=== PATIENT | male | born 1985 ===

== ENCOUNTER → 2018-01-05 | Day surgery (SDC) | payer BC, OTHER ==
[2017-12-18 09:32] VITALS: Ht 185.4 cm; Wt 113.6 kg
[~2018-01-05] VITALS: Ht 185.4 cm; Wt 113.6 kg
[~2018-01-05] MED LIST: ATROPINE SULFATE 0.1 MG/ML 5ML SYR IV PRN; BUPIVACAINE/EPINEPHRINE 0.5% MPF 1:200,000 30 ML VIAL ONE; CEFAZOLIN 2000MG IV PUSH 15 ML IV SCH; CLIN1CAP51 PO; DEXAMETHASONE SOD INJ 4 MG/ML VIAL ONE; EpHEDrine SULFATE INJ 50 MG/ML AMP IV PRN; FENTANYL CITRATE INJ 50 MCG/1 ML 2 ML VIAL IV PRN; FENTANYL CITRATE INJ 50 MCG/1 ML 2 ML VIAL ONE; LACTATED RINGER'S 1000ML 1,000 ML IV SCH; LIDOCAINE HCL 2% 2 ML VIAL (20MG/ML) ONE; MIDAZOLAM HCL 1 MG/ML 2ML VIAL ONE; ONDANSETRON INJ 2 MG/ML 2 ML VIAL IV PRN; ONDANSETRON INJ 2 MG/ML 2 ML VIAL ONE; OXYC7.5T65 PO; OXYCODONE/ACETAMINOPHEN 5-325 TAB PO PRN; PROPOFOL IV EMULSION 10 MG/ML 20 ML VIAL ONE; SCOPOLAMINE 1.5 MG TDSY TD ONE
--- NOTE | 2018-01-05 11:55 | History & Physical Bridge Note ---
H&P Re-Evaluation Bridge Note: I have examined the patient, reviewed the History & Physical and in the interval since the performance of the History & Physical I have noted the following changes of clinical significance: No changes noted
--- NOTE | 2018-01-05 12:18 | Discharge Instructions ---
Discharge Instructions Date of Service Jan 05, 2018. Admission Reason for Admission: Sterilization, Scrotal Mass Discharge Discharge Diagnosis / Problem: Bilateral hydrocele, left spermatocele, bilateral elective sterilization Discharge Goals Goal(s): Decrease discomfort, Improve function, Increase independence Activity Recommendations Activity Limitations: resume your previous activity Lifting Limitations: gradually increase as tolerated Exercise/Sports Limitations: gradually increase as tolerated . Instructions / Follow-Up Instructions / Follow-Up Okay to shower in 24 hours. Call if any fevers or chills. Monitor skin and area for swelling. Avoid overactivity, heavy lifting, or contact sports. Okay to ice every 20 mins intermittently. Call if any issues. Finish antibiotics. Current Hospital Diet Patient's current hospital diet: Discharge Diet Recommended Diet: Regular Diet Procedures Procedures Performed: Bilateraly scrotal exploration and removal of cystic lesions and bilateral vasectomy. Pending Studies Studies pending at discharge: no Medical Emergencies . Who to Call and When: Medical Emergencies: If at any time you feel your situation is an emergency, please call 911 immediately. . Non-Emergent Contact Non-Emergency issues call your: Primary Care Provider, Urologist Call Non-Emergent contact if: you have a fever, temperature is above 100.5, temperature is above 101, temperature is above 101.5, your pain is not controlled, your pain is worsening, your pain is unusual for you, wound has increased drainage, wound has increased redness, wound has increased pain . . "Provider Documentation" section prepared by Navid Mcpherson. .
--- NOTE | 2018-01-05 14:38 | [facility] Operative Report ---
Operative Report Operative Date Jan 05, 2018. Pre-Operative Diagnosis 1. Bilateral hydrocele vs spermatocele. 2. Desired sterilization. Post-Operative Diagnosis Same. Large left spermatocele with hydrocele. Minimal right hydrocele. Procedure(s) Performed Bilateral scrotal exploration with bilateral vasectomy and left hydrocele and spermatocelectomy. Surgeon [place] Estimated Blood Loss Minimal Findings Left spermatocele and hydrocele Specimens 1. Right Vas 2. Left Vas 3. Left hydrocele and spermatocele Drains None Anesthesia Type General Complication(s) none Disposition Recovery Room / PACU Indications Bilateral scrotal lesions likely hydrocele vs spermatocele with desired sterility. Plan for bilateral resection of lesions with bilateral vasectomy. Description of Procedure Patient was consented and brought back to the operating room. Patient was placed under anesthesia in the supine position. Patient was prepped and draped in the regular sterile fashion. A time out was completed. With the time out completed and the patient prepped, the median raphe was marked and local injected into the subcutaneous tissues. An incision was made with a scalpel and the deep tissues were dissected with bovie electrocautery. The left testicle was delivered and found to have a large spermatocele with surrounding hydrocele. All important structures and landmarks were identified and the sac open avoiding any areas of concern. Excess tissue was dissected and sent for analysis. The entire testicle and epididymis were examined. The spermatocele was noted and was dissected and sent with the specimen. All bleeding was controlled. The scrotum was irrigated and all bleeding controlled. The vas deferens was then isolated, a segment was removed, the ends were clamped, tied, cauterized, and the distal end was sewn below the surrounding fascia to have a fascial interposition. The edges of the hydrocele sac were then oversewn behind the testicle. A cord block was completed with additional local anesthetic. The entire area was examined. The testicle appeared viable without lesions or other areas of concern. The Testicle was placed into the hemiscrotum in anatomic position without any torsion of the cord. The right hemiscrotum was opened and found to have a very small hydrocele. Due to the minor, minimal hydrocele, excision was deferred. The vas deferens was then isolated, a segment was removed, the ends were clamped, tied, cauterized, and the distal end was sewn below the surrounding fascia to have a fascial interposition. A cord block was completed with additional local anesthetic. The Testicle remained in the hemiscrotum in anatomic position without any torsion of the cord. The deep and subcutaneous tissues were closed with a running 3-0 vicryl suture. A 3-0 chromic suture was then used to close the skin in a running fashion. The area was cleaned. Adhesive placed. A scrotal support was placed with dressings. The patient was cleaned, aroused from anesthesia, and transferred to the pacu in stable condition having tolerated the procedure well with no complications. I was present and participated in all aspects of the procedure. I attest to the content of the Intraoperative Record and any orders documented therein. Any exceptions are noted below.
--- NOTE | 2018-01-05 15:10 | Anesthesia Progress Nt - [facility] ---
Anesthesia Post Op Note Date & Time Jan 05, 2018 at 15:10 Vital Signs Pain Intensity: 0 Vital Signs Past 12 Hours Date Time Temp Pulse Resp B/P (MAP) Pulse Ox O2 Delivery O2 Flow Rate FiO2 01/05/18 15:02 74 12 97 01/05/18 15:02 74 12 01/05/18 15:01 132/62 01/05/18 14:59 78 6 96 01/05/18 14:59 79 6 01/05/18 14:58 73 9 97 01/05/18 14:58 73 9 01/05/18 14:57 74 18 01/05/18 14:57 74 18 97 01/05/18 14:56 129/74 01/05/18 14:52 86 11 01/05/18 14:52 86 11 99 01/05/18 14:51 86 19 01/05/18 14:51 86 19 100 01/05/18 14:50 133/77 01/05/18 14:46 89 15 142/85 100 01/05/18 14:46 89 15 01/05/18 14:42 129/76 01/05/18 14:41 36.8 92 16 129/76 100 Mask 8 01/05/18 11:30 36.7 65 20 135/79 (97) 100 Room Air Notes Mental Status: alert / awake / arousable, participated in evaluation Pt Amnestic to Procedure: Yes Nausea / Vomiting: adequately controlled Pain: adequately controlled Airway Patency, RR, SpO2: stable & adequate BP & HR: stable & adequate Hydration State: stable & adequate Anesthetic Complications: no major complications apparent
[2018-01-05 15:16] VITALS: TEMP 36.6
[2018-01-05 15:26] VITALS: BP 118/79; PULSE 67; O2SAT 97
== END | disposition home or self-care (01) ==
LOC: X.SURG 11:23
PROVIDERS: ATTEND Urology
DX: Z30.2 Encounter for sterilization (principal); N43.42 Spermatocele of epididymis, multiple; N43.3 Hydrocele, unspecified; E66.9 Obesity, unspecified; Z88.2 Allergy status to sulfonamides; Z68.33 Body mass index [BMI] 33.0-33.9, adult